=== PATIENT | female | born 1980 | race Two or more races ===

== ENCOUNTER 2018-01-24 15:59 | Emergency (ER) | payer OTHER ==
[~2018-01-24] VITALS: Ht 165.1 cm; Wt 56.7 kg
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
[2018-01-24] MEDS ORDERED: IBUPROFEN 600 MG TABLET PO ONE ×2 (16:30)
[2018-01-24 17:34] VITALS: BP 128/74
== END 2018-01-24 17:35 | disposition home or self-care (01) ==
LOC: ER 16:06
DX: Z02.89 Encounter for other administrative examinations (principal); S20.212A Contusion of left front wall of thorax, initial encounter; W22.8XXA Striking against or struck by other objects, initial encounter; Y93.89 Activity, other specified; Y92.89 Other specified places as the place of occurrence of the external cause; Y99.8 Other external cause status
CPT/HCPCS: 71100-TC; A4606; Z7610